=== PATIENT | male | born 1970 | race Two or more races ===

== ENCOUNTER 2017-09-21 21:36 | Emergency (ER) | payer SELFPAY ==
[2017-09-21 21:42] VITALS: O2SAT 99
[2017-09-21] MEDS ORDERED: Lidocaine 2% w Epi 1:100,000 Inj IJ STA (22:17)
[2017-09-21] MEDS ORDERED: Multivitamin (MVI) 10 ML, Thiamine 100 MG, Folic Acid 1 MG in Dextrose 5%/0.45% NS 1,00... IV ONE (22:26)
[2017-09-21 23:30] LABS: BASO % 0.4 % (0.0-2.0); EOS # 0.1 K/uL (0.0-0.7); EOS % 1.3 % (0.0-4.0); HEMOGLOBIN 15.4 g/dL (12.0-18.0); LYMPH # 1.2 K/uL (1.0-4.3); LYMPH % 24.9 % (20.0-40.0); MEAN CELL VOLUME 88.1 fl (80.0-94.0); MEAN CORPUSCULAR HEMOGLOBIN 29.4 pg (27.0-31.0); MEAN CORPUSCULAR HGB CONC 33.4 g/dL (33.0-37.0); MEAN PLATELET VOLUME 8.1 fl (7.2-11.7); MONO # 0.3 K/uL (0.0-0.8); MONO % 6.5 % (0.0-10.0); NEUT # 3.3 K/uL (1.8-7.0); NEUT % 66.9 % (50.0-75.0); NRBC % 0.1 % (0.0-0.0); RBC 5.23 Mil/uL (4.40-5.90); WHITE BLOOD COUNT 4.9 K/uL (4.8-10.8)
[2017-09-21 23:39] LABS: BLOOD UREA NITROGEN 14 mg/dl (9-20); CALCIUM 8.5 mg/dL (8.4-10.2); GFR AFRICAN-AMERICAN > 60; GFR NON-AFRICAN AMERICAN 59
[2017-09-21] MEDS ORDERED: Tdap Vaccine 0.5 ml Vial (10-64 yrs) IM ONE ×2 (23:47→23:50)
[2017-09-21] MEDS ORDERED: Lidocaine 2% w Epi 1:100,000 Inj IJ ONE (23:51)
[2017-09-22 01:10] VITALS: BP 132/76; PULSE 86; RESP 16; TEMP 97.8
--- NOTE | 2017-09-22 01:26 | ED PDOC ---
HPI: General Adult Time Seen by Provider: 09/21/17 21:51 Chief Complaint (Nursing): Trauma Chief Complaint (Provider): Trauma History Per: Patient, EMS History/Exam Limitations: intoxication Onset/Duration Of Symptoms: Hrs Current Symptoms Are (Timing): Still Present Additional Complaint(s): Aaron Bailey is a 47 year old male with no past medical history who was brought to the ED by EMS for evaluation of bleeding wound to left forehead, onset just prior to arrival. Patient is visibly intoxicated and states he was drinking heavily (beer, wine and hard liquor). He does not recall how he was injured or how he arrived to the ED. Patient cannot state what the date is and is unsure of loss of consciousness. PMD: none provided Past Medical History Reviewed: Historical Data, Nursing Documentation, Vital Signs Vital Signs: Last Vital Signs Temp 97.8 F 09/22/17 01:09 Pulse 86 09/22/17 01:09 Resp 16 09/22/17 01:09 BP 132/76 09/22/17 01:09 Pulse Ox 99 09/23/17 14:57 - Medical History PMH: No Chronic Diseases - Surgical History Surgical History: No Surg Hx - Family History Family History: States: Unknown Family Hx - Social History Current smoker - smoking cessation education provided: No (unknown) Alcohol: Other (heavy drinker) Drugs: Denies - Allergies Allergies/Adverse Reactions: Allergies Allergy/AdvReac Type Severity Reaction Status Date / Time No Known Allergies Allergy Verified 09/21/17 21:42 Review of Systems ROS Statement: Except As Marked, All Systems Reviewed And Found Negative Constitutional: Positive for: Other (wound to forehead) Physical Exam - Reviewed Nursing Documentation Reviewed: Yes Vital Signs Reviewed: Yes - Physical Exam Appears: Positive for: Non-toxic, No Acute Distress Head Exam: Positive for: NORMAL INSPECTION, NORMOCEPHALIC. Negative for: ATRAUMATIC (3 cm laceration above left eyebrow ) Skin: Positive for: Normal Color, Warm, DRY Eye Exam: Positive for: EOMI, Normal appearance, PERRL ENT: Positive for: Normal ENT Inspection Neck: Positive for: Normal, Painless ROM, Supple Cardiovascular/Chest: Positive for: Regular Rate, Rhythm. Negative for: Murmur Respiratory: Positive for: Normal Breath Sounds. Negative for: Respiratory Distress Gastrointestinal/Abdominal: Positive for: Normal Exam, Soft. Negative for: Tenderness Back: Positive for: Normal Inspection. Negative for: L CVA Tenderness, R CVA Tenderness, Vertebral Tenderness Extremity: Positive for: Normal ROM. Negative for: Deformity, Swelling Neurologic/Psych: Positive for: Alert. Negative for: Motor/Sensory Deficits - Laboratory Results Result Diagrams: 09/21/17 23:00 09/21/17 23:00 - ECG O2 Sat by Pulse Oximetry: 99 (RA) Pulse Ox Interpretation: Normal Medical Decision Making Medical Decision Making: Time: 22:24 Impression: head trauma and laceration to eyebrow; Altered Mental Status most likely due to intoxication Plan: --Due to current altered mental status will rule out intra-cranial injury and neck injury --Basic labs and tetanus vaccine --Laceration repair procedure --Pending sobriety and safe discharge home Brain and neck ct show no acute injury. Pt with elevated BAL but labs otherwise normal. Pt received Tetanus injection in ED. Wound was sutured without complication. Pt clinically sober following suture placement and had arranged to get an Uber home. PT given verbal and written wound care instructions and referral for follow up for suture removal. Return parameters discussed with the patient. Scribe Attestation: Documented by Hina Scott, acting as a scribe for Yamilka Vargas MD. Provider Scribe Attestation: All medical record entries made by the Scribe were at my direction and personally dictated by me. I have reviewed the chart and agree that the record accurately reflects my personal performance of the history, physical exam, medical decision making, and the department course for this patient. I have also personally directed, reviewed, and agree with the discharge instructions and disposition. Procedures - Time-Out Type of Procedure: suture Site of Procedure: left eyebrow Correct Patient (with visual ID + MR# on ID Band): Yes Correct Procedure: Yes Correct Site Marked: Yes X-Ray Marked: NA - Laceration/Wound Repair Left Head Wound Length (cm): 3 Wound's Depth, Shape: superficial, linear Wound Explored: no foreign body removed Irrigated w/ Saline (ccs): 200 (water) Betadine Prep?: Yes Anesthesia: Lidocaine w/ Epi (5 cc) Wound Repaired With: Sutures (placed with good approximation) Suture Size/Type: 3:0, nylon Number of Sutures: 7 Wound Complexity: Simple Sterile Dressing Applied?: Yes (Bacitracin applied) Disposition - Clinical Impression Clinical Impression: Laceration of head - Disposition Referrals: [facility] [place] [Outside] [facility] [Outside] Disposition: Routine/Home Disposition Time: 00:45 Condition: IMPROVED Additional Instructions: Schedule follow up appointment with the outpatient clinic (information in discharge packet) for suture removal in 3 to 5 days. return to the emergency department if you develop swelling, pus, bleeding, redness, or other new symptoms. Instructions: Wound Care (DC), Stitches Forms: XING (Togolese)
--- NOTE | 2017-09-22 11:16 | CT ---
Date of service: 09/21/2017 PROCEDURE: CT HEAD WITHOUT CONTRAST. HISTORY: ETOH with head trauma COMPARISON: None available. TECHNIQUE: Axial computed tomography images were obtained through the head/brain without intravenous contrast. Coronal and sagittal reconstructed images. Radiation dose: Total exam DLP = 1212.82 mGy-cm. This CT exam was performed using one or more of the following dose reduction techniques: Automated exposure control, adjustment of the mA and/or kV according to patient size, and/or use of iterative reconstruction technique. FINDINGS: HEMORRHAGE: No intracranial hemorrhage. BRAIN: No mass effect or edema. No atrophy or chronic microvascular ischemic changes. VENTRICLES: Unremarkable. No hydrocephalus. CALVARIUM: Unremarkable. PARANASAL SINUSES: Unremarkable as visualized. No significant inflammatory changes. MASTOID AIR CELLS: Unremarkable as visualized. No inflammatory changes. OTHER FINDINGS: None. IMPRESSION: No acute intracranial abnormalities. No significant findings to account for the clinical presentation. Concordant results (preliminary interpretation) provided by [employer]. Procedure Completed: 22:53. Preliminary ([facility]) Report: Dictated and Authenticated: 23:46. Final Interpretation: 11:14.
--- NOTE | 2017-09-22 11:22 | CT ---
Date of service: 09/21/2017 PROCEDURE: CT Cervical Spine without contrast HISTORY: head trauma with ETOH intoxication COMPARISON: None available. TECHNIQUE: Axial computed tomography images were obtained of the cervical spine without the use of intravenous contrast. Coronal and sagittal reformatted images were created and reviewed. Radiation dose: Total exam DLP = 33.77 mGy-cm. This CT exam was performed using one or more of the following dose reduction techniques: Automated exposure control, adjustment of the mA and/or kV according to patient size, and/or use of iterative reconstruction technique. FINDINGS: VERTEBRAE: No fracture. Normal alignment. No destructive bony lesion. DISCS/SPINAL CANAL/NEURAL FORAMINA: No significant central canal or neural foraminal stenosis. Degenerative changes C4-5, C5-6 and C6-7. PARASPINAL SOFT TISSUES: Unremarkable. OTHER FINDINGS: None. IMPRESSION: No acute findings related to/accounting for the clinical presentation. Additional benign and/or incidental findings described above. Concordant results (preliminary interpretation) provided by [facility]. Procedure Completed: 22:55 Preliminary ([facility]) Report: Dictated and Authenticated: 23:48. Final Interpretation: 11:19. September 22, 2017.
== END 2017-09-22 01:10 | disposition home or self-care (01) ==
LOC: H.ER 21:36
DX: F10.129 Alcohol abuse with intoxication, unspecified (principal); S01.81XA Laceration without foreign body of other part of head, initial encounter; S09.90XA Unspecified injury of head, initial encounter
CPT/HCPCS: 12011; 70450; 72125; 80048; 85025; 90471; 90715; 99285; G0480